=== PATIENT | female | born 1965 | race Caucasian/White ===

== ENCOUNTER 2017-01-27 15:49 | Emergency (ER) | payer BC ==
[2017-01-27 16:09] VITALS: BP 117/94
[2017-01-27] MEDS ORDERED: cefTRIAXone 1 GM in Sodium Chloride 0.9% 50 ML IV ONE ×2 (16:23→17:00)
[2017-01-27] MEDS ORDERED: Ketorolac 30 MG/ML SDV IVPUSH ONE (16:23)
[2017-01-27] MEDS ORDERED: Sodium Chloride 0.9% 10 ML Syringe FLUSH PRN (16:23)
--- NOTE | 2017-01-27 16:30 | EDM.PDOC ---
ED HPI GENERAL MEDICAL PROBLEM - General Chief Complaint: ENT Problem Stated Complaint: LT BOTTOM ABSCESS TOOTH Time Seen by Provider: 01/27/17 16:24 Source of Information: Reports: Patient History Limitations: Reports: No limitations - History of Present Illness INITIAL COMMENTS - FREE TEXT/NARRATIVE: pt has marked swelling in the left facial area. She is on amoxicillin. The antibiotic was started yesterday but the swelling has been progressive. She is also struggling with pain relief. She does have hydrocodone. Onset: gradual Duration: Day(s): Location: Reports: face Associated Symptoms: Reports: fever/chills, other (pain in left facial area. ) Left Tooth/Teeth Pain Score (Numeric/FACES): 8 - Related Data Allergies Allergy/AdvReac Type Severity Reaction Status Date / Time No Known Allergies Allergy Verified 01/27/17 16:09 Home Meds: Home Meds Acetaminophen with Codeine [Tylenol with Codeine #3 Tablet] 1 tab PO Q4HR PRN [History] Acetaminophen/HYDROcodone [Crimora 325-5 MG] 1 tab PO Q6H 01/27/17 [History] Amoxicillin 1 tab PO TID 01/27/17 [History] Past Medical History HEENT History: Reports: Impaired vision BUSINESS SUPPORT SPECIALIST History: Reports: - Infectious Disease History Infectious Disease History: Reports: Chicken pox - Past Surgical History HEENT Surgical History: Reports: Tonsillectomy Dermatological Surgical History: Reports: None Social & Family History - Tobacco Use Smoking Status *Q: Heavy Tobacco Smoker Years of Tobacco use: 30 Packs/Tins Daily: 1 Used Tobacco, but Quit: No Second Hand Smoke Exposure: No - Caffeine Use Caffeine Use: Reports: Coffee, Soda - Alcohol Use Days Per Week of Alcohol Use: 1 Number of Drinks Per Day: 1 Total Drinks Per Week: 1 - Recreational Drug Use Recreational Drug Use: No ED ROS ENT - Review of Systems Review Of Systems: See Below Constitutional: Reports: chills HEENT: Reports: Dental pain Respiratory: Reports: No Symptoms Cardiovascular: Reports: No symptoms Endocrine: Reports: no symptoms GI/Abdominal: Reports: No symptoms : Reports: no symptoms ED EXAM, ENT - Physical Exam Exam: See Below Text/Narrative:: pt has a painful left molar on the lower jaw area. She has marked swelling of the face. The tooth has had a previous root canal. Exam Limited By: No limitations General Appearance: alert, moderate distress Ears: normal TMs Nose: normal inspection Mouth/Throat: Other (Pt has facial swelling she has a very tender tooth in the lkower left. There is no visable abcess present. ) Head: atraumatic Neck: normal inspection Course - Vital Signs Last Recorded V/S: Last Vital Signs Temp 36.9 C 01/27/17 16:07 Pulse 86 01/27/17 16:07 Resp 14 01/27/17 16:07 BP 117/94 H 01/27/17 16:07 Pulse Ox 97 01/27/17 16:07 - Orders/Labs/Meds Orders: Active Orders 24 hr Category Date Time Status Ketorolac [Toradol] Med 01/27/17 16:23 Once 30 mg IVPUSH ONETIME ONE Sodium Chloride 0.9% [Saline Flush] Med 01/27/17 16:23 Ordered 10 ml FLUSH ASDIRECTED PRN cefTRIAXone [Rocephin] 1 gm Med 01/27/17 16:23 Ordered Sodium Chloride 0.9% [Normal Saline] 50 ml IV ONETIME Saline Lock Insert [OM.PC] Routine Oth 01/27/17 16:23 Ordered Medication Orders Ceftriaxone Sodium 1 gm/ (Sodium Chloride) 50 mls @ 100 mls/hr IV ONETIME ONE Stop: 01/27/17 16:52 Sodium Chloride (Saline Flush) 10 ml FLUSH ASDIRECTED PRN PRN Reason: Keep Vein Open Meds: Medications Generic Name Dose Route Start Last Admin Trade Name Freq PRN Reason Stop Dose Admin Ceftriaxone Sodium 1 gm/ 50 mls @ 100 mls/hr 01/27/17 16:23 Sodium Chloride IV 01/27/17 16:52 ONETIME ONE Sodium Chloride 10 ml 01/27/17 16:23 Saline Flush FLUSH ASDIRECTED PRN Keep Vein Open - Re-Assessments/Exams Free Text/Narrative Re-Assessment/Exam: 01/27/17 16:29 pt will be given rocepen 1 gm iv now and tomorrow before she goes to [place] for her consult with the specilist she will be given rocephen 1 cm. Pt will be given a few percocet for pain. Departure - Departure Time of Disposition: 16:30 Disposition: Home, Self-Care 01 Condition: fair Clinical Impression: Dental abscess - Discharge Information Forms: ED Department Discharge Care Plan Goals: irrigate mouth with warm water, stop amoxicllin today and resume tomorrow, rtc tomorrow in am for rocephen 1 gm, motrin 600mg q6h percoct 5/325 q4h prn for pain, keep appt with the dental specialist tomorrow. - My Orders Last 24 Hours: My Active Orders 01/27/17 16:23 Ketorolac [Toradol] 30 mg IVPUSH ONETIME ONE Sodium Chloride 0.9% [Saline Flush] 10 ml FLUSH ASDIRECTED PRN cefTRIAXone [Rocephin] 1 gm Sodium Chloride 0.9% [Normal Saline] 50 ml IV ONETIME Saline Lock Insert [OM.PC] Routine - Assessment/Plan Last 24 Hours: My Active Orders 01/27/17 16:23 Ketorolac [Toradol] 30 mg IVPUSH ONETIME ONE Sodium Chloride 0.9% [Saline Flush] 10 ml FLUSH ASDIRECTED PRN cefTRIAXone [Rocephin] 1 gm Sodium Chloride 0.9% [Normal Saline] 50 ml IV ONETIME Saline Lock Insert [OM.PC] Routine
== END 2017-01-27 17:40 | disposition home or self-care (01) ==
LOC: JP.ED 15:49
DX: K04.7 Periapical abscess without sinus (principal); F17.210 Nicotine dependence, cigarettes, uncomplicated; Z98.890 Other specified postprocedural states
CPT/HCPCS: 96365; 96375; 99283; J0696; J1885; J7050

== ENCOUNTER 2021-07-19 08:08 | Day surgery (SDC) | payer BC, OTHER ==
[2021-07-19] MEDS ORDERED: Midazolam 1 MG/ML 2 ML SDV ONE (08:14)
[2021-07-19] MEDS ORDERED: Propofol 200 MG/20 ML SDV ONE (08:14)
[2021-07-19] MEDS ORDERED: fentaNYL 100 MCG/2 ML SDV ONE (08:14)
[2021-07-19] MEDS: Sodium Chloride 0.9% 1,000 ML IV SCH (08:57)
[2021-07-19 11:47] VITALS: PULSE 56
[2021-07-19 11:56] VITALS: BP 107/62
--- NOTE | 2021-07-19 13:07 | OR ---
DATE OF PROCEDURE: 07/19/2021 SURGEON: David Shaver MD PROCEDURE: Colonoscopy. FINDINGS: Normal colonoscopy. COMPLICATIONS: None. SEO EXECUTIVE: None. ANESTHESIA: MAC. PREOPERATIVE DIAGNOSIS: Screening colonoscopy. POSTOPERATIVE DIAGNOSIS: Screening colonoscopy. RISKS: Risks, benefits, alternatives, and limitations including, but not limited to infection, bleeding, perforation, false positives and false negatives were explained to the patient and wished to proceed. PROCEDURE IN DETAIL: The patient was placed in left lateral decubitus position. Digital rectal exam was performed without abnormality. Scope was introduced and advanced atraumatically to the ileocecal valve. A photo was taken of this. Scope was brought back to the ascending, transverse, descending colon, and retroflexed. No evidence of old or new blood. No masses. No polyps. No diverticulosis. No abnormalities on retroflexion. Greater than 8 minutes was spent removing the scope. The patient tolerated the procedure well. David Shaver MD /[id number]
== END 2021-07-19 12:06 | disposition home or self-care (01) ==
LOC: JP.SDS 08:08
PROVIDERS: ATTEND Surgery
DX: Z12.11 Encounter for screening for malignant neoplasm of colon (principal); Z86.010 Personal history of colon polyps; Z80.0 Family history of malignant neoplasm of digestive organs; K21.9 Gastro-esophageal reflux disease without esophagitis
CPT/HCPCS: 45378; J2250; J2704; J3010; J7030